=== PATIENT | male | born 1970 | race African-American/Black ===

== ENCOUNTER 2018-04-03 10:11 | Inpatient (IN) | payer OTHER ==
[2018-04-03 10:48] VITALS: BMI 25.8
--- NOTE | 2018-04-03 12:03 | HP ---
"CIWA Score Nausea/Vomitin Muscle Tremors: 4-Moderate,w/Arms Extend Anxiety: 0-No Anxiety, at Ease Agitation: 0-Normal Activity Paroxysmal Sweats: No Perspiration Orientation: 0-Oriented Tacttile Disturbances: 0-None Auditory Disturbances: 0-None Visual Disturbances: 0-None Headache: 0-None Present CIWA-Ar Total Score: 7 - Admission Criteria OASAS Guidelines: Admission for Medically Managed Detox: Requires at least one of the followin. CIWA greater than 12 2. Seizures within the past 24 hours 3. Delirium tremens within the past 24 hours 4. Hallucinations within the past 24 hours 5. Acute intervention needed for co occurring medical disorder 6. Acute intervention needed for co occurring psychiatric disorder 7. Severe withdrawal that cannot be handled at a lower level of care (continued vomiting, continued diarrhea, abnormal vital signs) requiring intravenous medication and/or fluids 8. Patient presents the following: None of the above Admission Criteria Met: Admission criteria not met Admission [facility] Allergies/Adverse Reactions: Allergies Allergy/AdvReac Type Severity Reaction Status Date / Time egg [Egg] Allergy Severe Rash Verified 04/03/18 10:58 penicillin G Allergy Severe Difficulty Verified 04/03/18 10:58 Breathing History of Present Illness: This report was requested by: Cheyenne Camacho | Reference #: [id number] There are no results for the search terms that you entered. patient here requesting detox from etoh use reports 1 pint and 2 beers daily , reports use since March 04 2018 , prior no alcohol use , reports he was partying and started drinking, latest use 3 am today , reports he starts drinking around 10 am , reports no symptoms if not drinking, denies blackouts , seizures , reports tremors . States was told by parole to come to the program , prior incarceration x 5 years for robbery , released February 252018 . cocaine : 90 $ /day since Feb 2018 denies IVDU cannabis : 2 x/week recent use after Feb 2018 crystal meth since age 29 denies IVDU tobacco : 1 ppd since Feb 2018 PMHX : asthma since childhood ( [place] / [place] ) , HIV ( dx 2006 , RF=ST ) no clinic no meds , PSHX : denies PSYch : denies . Denies current SI / HI . meds : denies SHX : lives in sober housing , unemployed , finances habit through money from friends . Exam Limitations: Clinical Condition - Ebola screening Have you traveled outside of the country in the last 21 days: No Have you had contact with anyone from an Ebola affected area: No Have you been sick,other than usual withdrawal symptoms: No Do you have a fever: No - Review of Systems Constitutional: See HPI EENT: reports: No Symptoms Reported, See HPI Respiratory: reports: No Symptoms reported Cardiac: reports: No Symptoms Reported GI: reports: Nausea : reports: No Symptoms Reported Musculoskeletal: reports: No Symptoms Reported Integumentary: reports: No Symptoms Reported Neuro: reports: Tremors Endocrine: reports: No Symptoms Reported Psychiatric: reports: Orientated x3, Anxious Patient History - Patient Medical History Hx Anemia: No Hx Asthma: Yes Hx Chronic Obstructive Pulmonary Disease (COPD): No Hx Cancer: No Hx Cardiac Disorders: No Hx Congestive Heart Failure: No Hx Hypertension: No Hx Hypercholesterolemia: No Hx Pacemaker: No HX Cerebrovascular Accident: No Hx Seizures: No Hx Dementia: No Hx Diabetes: No Hx Gastrointestinal Disorders: No Hx Liver Disease: No Hx Genitourinary Disorders: No Hx Sexually Transmitted Disorders: Yes (gonorrhea) Hx Renal Disease (ESRD): No Hx Thyroid Disease: No Hx Human Immunodeficiency Virus (HIV): Yes (since 2005) Hx Hepatitis C: No Hx Depression: No Hx Suicide Attempt: No Hx Schizophrenia: No - Patient Surgical History Past Surgical History: No Hx Neurologic Surgery: No Hx Cataract Extraction: No Hx Cardiac Surgery: No Hx Lung Surgery: No Hx Breast Surgery: No Hx Breast Biopsy: No Hx Abdominal Surgery: No Hx Appendectomy: No Hx Cholecystectomy: No Hx Genitourinary Surgery: No Hx Section: No Hx Orthopedic Surgery: No Anesthesia Reaction: No - PPD History Previous Implant?: Yes Documented Results: Negative w/proof Implanted On Prior R Admission?: Yes Date: 07/16/12 Results: 0 mm - Smoking Cessation Smoking history: Current every day smoker Have you smoked in the past 12 months: Yes Aproximately how many cigarettes per day: 20 Hx Chewing Tobacco Use: No Initiated information on smoking cessation: No - Substances Abused Crack Route: Smoking Frequency: Daily Amount used: $90 Age of first use: 35 Date of Last Use: 04/03/18 Alcohol-vodka Route: Oral Frequency: Daily Amount used: 1 pt. Age of first use: 14 Date of Last Use: 04/03/18 Crystal meth Route: Smoking Frequency: 1-2 times per week Amount used: $60 Age of first use: 29 Date of Last Use: 04/03/18 Marijuana Route: Smoking Frequency: 3-6 times per week Amount used: $10 Age of first use: 27 Date of Last Use: 04/02/18 Family Disease History - Family Disease History Family History: Denies Admission [facility] Vital Signs: Vital Signs - 24 hr 04/03/18 10:44 Pulse Rate 89 Respiratory 20 Rate Blood Pressure 130/81 - Physical General Appearance: Yes: Mild Distress, Anxious HEENTM: Yes: EOMI, Hearing grossly Normal, Normocephalic, Normal Voice Respiratory: Yes: Chest Non-Tender, Lungs Clear, Normal Breath Sounds Neck: Yes: No masses,lesions,Nodules, Trachea in good position Cardiology: Yes: Regular Rhythm, Regular Rate, S1, S2 Abdominal: Yes: Normal Bowel Sounds, Non Tender, Soft Genitourinary: Yes: Within Normal Limits Back: Yes: Normal Inspection Musculoskeletal: Yes: full range of Motion, Gait Steady Extremities: Yes: Normal Capillary Refill, Normal Inspection, Normal Range of Motion, Tremors Neurological: Yes: Motor Strength 5/5, Normal Mood/Affect Integumentary: Yes: Normal Color, Other (tattoos face , neck UE) - Diagnostic (1) Nicotine dependence Current Visit: Yes Status: Acute Qualifiers: Nicotine product type: cigarettes (2) Cannabis use disorder, mild, abuse Current Visit: Yes Status: Acute (3) 2,8-qskapogom-5-methylamphetamine (DOM) use disorder, moderate Current Visit: Yes Status: Chronic (4) Alcohol dependence Current Visit: Yes Status: Acute (5) Cocaine dependence Current Visit: Yes Status: Active S Breath Alcohol Content Breath Alcohol Content: 0.001 Urine Drug Screen - Results Drug Screen Negative: No Urine Drug Screen Results: THC-Marijuana, LOVE-Cocaine, MET-Methamphetamine Inpatient Rehab Admission - Rehab Decision to Admit Inpatient rehab admission?: No"
[2018-04-03] MEDS ORDERED: IBUPROFEN 400 MG TABLET (FP) PO PRN (12:46)
[2018-04-03] MEDS ORDERED: NICOTINE POLACRILEX 2 MG GUM BUC PRN (12:46)
[2018-04-03] MEDS ORDERED: diazePAM 5 MG TABLET PO PRN (12:46)
[2018-04-03] MEDS ORDERED: MENTHOL/PHENOL 1 EACH UD MM PRN (12:46)
[2018-04-03] MEDS ORDERED: MAGNESIUM HYDROX 2400MG/30ML ORAL SUSPENSION 30 ML CUP PO PRN (12:46)
[2018-04-03] MEDS ORDERED: MAG HYDROX/AL HYDROX/SIMETH 30 ML UNIT-DOSE CUP PO PRN (12:46)
[2018-04-03] MEDS ORDERED: MAGNESIUM CITRATE 300 ML BOTTLE PO PRN (12:46)
[2018-04-03] MEDS ORDERED: ACETAMINOPHEN 325 MG TABLET (FP) PO PRN (12:46)
[2018-04-03] MEDS ORDERED: ALBUTEROL SO4 0.083% IH SOL 2.5 MG/3 ML VIAL.NEB. NEB PRN (12:48)
[2018-04-03] MEDS: diazePAM 5 MG TABLET PO SCH ×2 (14:30→22:20)
[2018-04-03] MEDS ORDERED: MELATONIN 5 MG TABLETS PO PRN (22:00)
[2018-04-03] MEDS: THIAMINE HCL 100 MG TABLET (FP) PO SCH (22:20)
[2018-04-04] MEDS: diazePAM 5 MG TABLET PO SCH ×3 (05:34→22:26)
[2018-04-04] MEDS: PRENATAL VITAMINS W/ FOLIC ACID TABLET (FP) PO SCH (10:40)
[2018-04-04 11:23] LABS: ALBUMIN 3.9 g/dl (3.4-5.0); ALK PHOS 107 U/L (45-117); ANION GAP 6 MMOL/L (8-16); BILIRUBIN,TOTAL 0.4 mg/dL (0.2-1); BLOOD UREA NITROGEN 15 mg/dL (7-18); CALCIUM 9.3 mg/dL (8.5-10.1); CHLORIDE 104 mmol/L (98-107); CO2 28 mmol/L (21-32); CREATININE 1.3 mg/dL (0.55-1.3); GLUCOSE,RANDOM 103 mg/dL (74-106); POTASSIUM 4.1 mmol/L (3.5-5.1); SGOT/AST 30 U/L (15-37); SGPT/ALT 35 U/L (13-61); SODIUM 138 mmol/L (136-145); TOT PROT 7.3 g/dl (6.4-8.2)
[2018-04-04 11:38] LABS: HEMATOCRIT 40.1 % (35.4-49); HEMOGLOBIN 13.9 GM/dL (11.7-16.9); MCH 33.6 pg (25.7-33.7); MCHC 34.8 g/dl (32.0-35.9); MEAN CELL VOLUME 96.5 fl (80-96); MEAN PLT VOLUME 10.7 fl (7.5-11.1); PLATELET COUNT 171 K/MM3 (134-434); RBC 4.15 M/mm3 (4.00-5.60); RDW 14.2 % (11.9-15.9); WHITE BLOOD COUNT 9.2 K/mm3 (4.0-10.0)
--- NOTE | 2018-04-04 15:22 | PN ---
S CIWA - CIWA Score Nausea/Vomitin Muscle Tremors: 4-Moderate,w/Arms Extend Anxiety: 2 Agitation: 0-Normal Activity Paroxysmal Sweats: No Perspiration Orientation: 0-Oriented Tacttile Disturbances: 2-Mild Itch/Numbness/Burn Auditory Disturbances: 0-None Visual Disturbances: 3-Moderate Sensitivity Headache: 0-None Present CIWA-Ar Total Score: 14 BHS Progress Note (SOAP) Subjective: Tremors, Body Aches, Nausea. Objective: PATIENT A & O X 3, OBSERVED AMBULATING ON UNIT. IN NO ACUTE DISTRESS. 04/04/18 15:21 Vital Signs Temperature 98.4 F 04/04/18 14:44 Pulse Rate 81 04/04/18 14:44 Respiratory Rate 18 04/04/18 14:44 Blood Pressure 138/79 04/04/18 14:44 O2 Sat by Pulse Oximetry (%) Laboratory Tests 04/04/18 04/04/18 04/04/18 06:00 06:00 06:00 WBC 9.2 RBC 4.15 Hgb 13.9 Hct 40.1 MCV 96.5 H MCH 33.6 D MCHC 34.8 RDW 14.2 Plt Count 171 D MPV 10.7 D Sodium 138 Potassium 4.1 Chloride 104 Carbon Dioxide 28 Anion Gap 6 L BUN 15 Creatinine 1.3 Creat Clearance w eGFR 59.70 Random Glucose 103 Calcium 9.3 Total Bilirubin 0.4 AST 30 ALT 35 Alkaline Phosphatase 107 Total Protein 7.3 Albumin 3.9 RPR Titer Nonreactive LABS NOTED. Assessment: 04/04/18 15:21 WITHDRAWAL SYMPTOMS. Plan: CONTINUE DETOX.
[2018-04-04] MEDS: THIAMINE HCL 100 MG TABLET (FP) PO SCH (22:26)
[2018-04-05] MEDS ORDERED: diazePAM 5 MG TABLET PO SCH (10:00)
[2018-04-05] MEDS: PRENATAL VITAMINS W/ FOLIC ACID TABLET (FP) PO SCH (10:08)
--- NOTE | 2018-04-05 12:05 | PN ---
S CIWA - CIWA Score Nausea/Vomitin-Mild Nausea/No Vomiting Muscle Tremors: 3 Anxiety: 3 Agitation: 2 Paroxysmal Sweats: 1-Minimal Palms Moist Orientation: 0-Oriented Tacttile Disturbances: 0-None Auditory Disturbances: 0-None Visual Disturbances: 0-None Headache: 2-Mild CIWA-Ar Total Score: 12 BHS Progress Note (SOAP) Subjective: tremor sweating restlessness anxiety Objective: 04/05/18 12:06 Vital Signs Temperature 98.2 F 04/05/18 09:37 Pulse Rate 69 04/05/18 09:37 Respiratory Rate 20 04/05/18 09:37 Blood Pressure 123/84 04/05/18 09:37 O2 Sat by Pulse Oximetry (%) Laboratory Last Values WBC 9.2 K/mm3 (4.0-10.0) 04/04/18 06:00 RBC 4.15 M/mm3 (4.00-5.60) 04/04/18 06:00 Hgb 13.9 GM/dL (11.7-16.9) 04/04/18 06:00 Hct 40.1 % (35.4-49) 04/04/18 06:00 MCV 96.5 fl (80-96) H 04/04/18 06:00 MCH 33.6 pg (25.7-33.7) D 04/04/18 06:00 MCHC 34.8 g/dl (32.0-35.9) 04/04/18 06:00 RDW 14.2 % (11.9-15.9) 04/04/18 06:00 Plt Count 171 K/MM3 (134-434) D 04/04/18 06:00 MPV 10.7 fl (7.5-11.1) D 04/04/18 06:00 Sodium 138 mmol/L (136-145) 04/04/18 06:00 Potassium 4.1 mmol/L (3.5-5.1) 04/04/18 06:00 Chloride 104 mmol/L (98-107) 04/04/18 06:00 Carbon Dioxide 28 mmol/L (21-32) 04/04/18 06:00 Anion Gap 6 MMOL/L (8-16) L 04/04/18 06:00 BUN 15 mg/dL (7-18) 04/04/18 06:00 Creatinine 1.3 mg/dL (0.55-1.3) 04/04/18 06:00 Creat Clearance w eGFR 59.70 (>60) 04/04/18 06:00 Random Glucose 103 mg/dL (74-106) 04/04/18 06:00 Calcium 9.3 mg/dL (8.5-10.1) 04/04/18 06:00 Total Bilirubin 0.4 mg/dL (0.2-1) 04/04/18 06:00 AST 30 U/L (15-37) 04/04/18 06:00 ALT 35 U/L (13-61) 04/04/18 06:00 Alkaline Phosphatase 107 U/L (45-117) 04/04/18 06:00 Total Protein 7.3 g/dl (6.4-8.2) 04/04/18 06:00 Albumin 3.9 g/dl (3.4-5.0) 04/04/18 06:00 RPR Titer Nonreactive (NONREACTIVE) 04/04/18 06:00 lab noted Assessment: 04/05/18 12:06 withdrawal sx Plan: continue detox
[2018-04-05 17:33] VITALS: BP 139/77; PULSE 88; TEMP 97.7
--- NOTE | 2018-04-05 18:56 | PN ---
[facility] Progress Note Note: informed by nurse ,stated patient would like to leave alert,no complaint stated he could not complete treatment due to personal issue the risk of relapsing is high all attempts to convince patient to stay with no avail seen by counselors and nurse patient signed release ama,advise to go to nearest emergency room if any emergency problem, patient will follow up with his medical provider at [facility] Vital Signs Temperature 97.7 F 04/05/18 17:32 Pulse Rate 88 04/05/18 17:32 Respiratory Rate 16 04/05/18 17:32 Blood Pressure 139/77 04/05/18 17:32 O2 Sat by Pulse Oximetry (%) patient left the unit in good and stable condition, has albuterol inhaler with him
--- NOTE | 2018-04-05 18:59 | DS ---
[facility] Detox Discharge Summary Admission Date: 04/03/18 Discharge Date: 04/05/18 - History Present History: Alcohol Dependence, Cannabis Dependence, Cocaine Dependence Additional Comments: patient signed release ama Pertinent Past History: asthma - Physical Exam Results Vital Signs: Vital Signs Temperature 97.7 F 04/05/18 17:32 Pulse Rate 88 04/05/18 17:32 Respiratory Rate 16 04/05/18 17:32 Blood Pressure 139/77 04/05/18 17:32 O2 Sat by Pulse Oximetry (%) Pertinent Admission Physical Exam Findings: withdrawal signs and symptom Laboratory Last Values WBC 9.2 K/mm3 (4.0-10.0) 04/04/18 06:00 RBC 4.15 M/mm3 (4.00-5.60) 04/04/18 06:00 Hgb 13.9 GM/dL (11.7-16.9) 04/04/18 06:00 Hct 40.1 % (35.4-49) 04/04/18 06:00 MCV 96.5 fl (80-96) H 04/04/18 06:00 MCH 33.6 pg (25.7-33.7) D 04/04/18 06:00 MCHC 34.8 g/dl (32.0-35.9) 04/04/18 06:00 RDW 14.2 % (11.9-15.9) 04/04/18 06:00 Plt Count 171 K/MM3 (134-434) D 04/04/18 06:00 MPV 10.7 fl (7.5-11.1) D 04/04/18 06:00 Sodium 138 mmol/L (136-145) 04/04/18 06:00 Potassium 4.1 mmol/L (3.5-5.1) 04/04/18 06:00 Chloride 104 mmol/L (98-107) 04/04/18 06:00 Carbon Dioxide 28 mmol/L (21-32) 04/04/18 06:00 Anion Gap 6 MMOL/L (8-16) L 04/04/18 06:00 BUN 15 mg/dL (7-18) 04/04/18 06:00 Creatinine 1.3 mg/dL (0.55-1.3) 04/04/18 06:00 Creat Clearance w eGFR 59.70 (>60) 04/04/18 06:00 Random Glucose 103 mg/dL (74-106) 04/04/18 06:00 Calcium 9.3 mg/dL (8.5-10.1) 04/04/18 06:00 Total Bilirubin 0.4 mg/dL (0.2-1) 04/04/18 06:00 AST 30 U/L (15-37) 04/04/18 06:00 ALT 35 U/L (13-61) 04/04/18 06:00 Alkaline Phosphatase 107 U/L (45-117) 04/04/18 06:00 Total Protein 7.3 g/dl (6.4-8.2) 04/04/18 06:00 Albumin 3.9 g/dl (3.4-5.0) 04/04/18 06:00 RPR Titer Nonreactive (NONREACTIVE) 04/04/18 06:00 - Medication Discharge Medications: Ambulatory Orders Albuterol Sulfate Inhaler - [Ventolin Hfa *Inhaler*] 2 inh IH Q4H PRN 07/14/12 - AMA Did Patient Leave Against Medical Advice: Yes
== END 2018-04-05 18:57 | disposition left against medical advice (07) | DRG 770 ==
LOC: YASAS 10:11 → Y3N 12:57
PROVIDERS: ADMIT Surgery; ATTEND Surgery
PROC: HZ2ZZZZ Detoxification Services for Substance Abuse Treatment (ICD-10-PCS; principal; 2018-04-03)
DX: F10.230 Alcohol dependence with withdrawal, uncomplicated (principal); F14.20 Cocaine dependence, uncomplicated; F15.90 Other stimulant use, unspecified, uncomplicated; F12.90 Cannabis use, unspecified, uncomplicated; F17.210 Nicotine dependence, cigarettes, uncomplicated; B20 Human immunodeficiency virus [HIV] disease; J45.909 Unspecified asthma, uncomplicated; Z87.438 Personal history of other diseases of male genital organs; Z88.0 Allergy status to penicillin; Z91.012 Allergy to eggs
CPT/HCPCS: 36415; 80053; 85027; 86593

== ENCOUNTER 2018-11-18 19:56 | Inpatient (IN) | payer OTHER ==
[2018-11-19 00:02] VITALS: BMI 24.8
--- NOTE | 2018-11-19 03:43 | PN ---
S CIWA - CIWA Score Nausea/Vomitin-No Nausea/No Vomiting Muscle Tremors: 2 Anxiety: 4-Mod. Anxious/Guarded Agitation: 3 Paroxysmal Sweats: 2 Orientation: 0-Oriented Tacttile Disturbances: 0-None Auditory Disturbances: 0-None Visual Disturbances: 0-None Headache: 4-Moderately Severe CIWA-Ar Total Score: 15 S Progress Note (SOAP) Subjective: Alcohol withdrawal with crack use HIV+ on Bactrim only Anxiety depression = Objective: alert and orient Tremors, anxiety, shakes, nausea, insomnia Vital Signs Temperature 97.3 F L 11/19/18 02:01 Pulse Rate 74 11/19/18 02:01 Respiratory Rate 16 11/19/18 02:01 Blood Pressure 124/75 11/19/18 02:01 O2 Sat by Pulse Oximetry (%) Assessment: Alcohol withdrawal History of HIV + Plan: Admit for detox. Librium regimen see admission orders H and P to be done in the morning
[2018-11-19] MEDS ORDERED: MELATONIN 5 MG TABLETS PO PRN (03:51)
[2018-11-19] MEDS ORDERED: hydrOXYzine PAMOATE 25 MG CAPSULE (FP) PO PRN (03:51)
[2018-11-19] MEDS ORDERED: ACETAMINOPHEN 325 MG TABLET (FP) PO PRN ×2 (03:51)
[2018-11-19] MEDS ORDERED: MAGNESIUM HYDROX 2400MG/30ML ORAL SUSPENSION 30 ML CUP PO PRN (03:51)
[2018-11-19] MEDS ORDERED: NICOTINE POLACRILEX 2 MG GUM BUC PRN (03:51)
[2018-11-19] MEDS ORDERED: chlordiazePOXIDE HCL 25 MG CAPSULE PO PRN (03:51)
[2018-11-19] MEDS ORDERED: BISMUTH SUBSALICYLATE 524 MG/30 ML UD PO PRN (03:51)
[2018-11-19] MEDS ORDERED: IBUPROFEN 400 MG TABLET (FP) PO PRN (03:51)
[2018-11-19] MEDS ORDERED: MENTHOL/PHENOL 1 EACH UD MM PRN (03:51)
[2018-11-19] MEDS ORDERED: MAGNESIUM CITRATE 300 ML BOTTLE PO PRN (03:51)
[2018-11-19] MEDS ORDERED: METHOCARBAMOL 500 MG TABLET PO PRN (03:51)
[2018-11-19] MEDS ORDERED: MAG HYDROX/AL HYDROX/SIMETH 30 ML UNIT-DOSE CUP PO PRN (03:51)
[2018-11-19] MEDS ORDERED: ALBUTEROL SO4 8 GM HFA INHALER IH PRN (03:53)
[2018-11-19] MEDS: chlordiazePOXIDE HCL 25 MG CAPSULE PO SCH ×3 (05:04→17:48)
[2018-11-19 09:49] VITALS: PULSE 78; TEMP 98.5
[2018-11-19] MEDS ORDERED: NICOTINE 14 MG/24 HOURS TOPICAL PATCH TD SCH (10:00)
[2018-11-19] MEDS ORDERED: PRENATAL VITAMINS W/ FOLIC ACID TABLET (FP) PO SCH (10:00)
[2018-11-19 13:19] VITALS: BP 126/74
[2018-11-19] MEDS ORDERED: guaiFENesin 200 MG/10 ML 10 ML UNIT-DOSE CUPS PO PRN (13:55)
--- NOTE | 2018-11-19 13:55 | PN ---
[facility] CIWA - CIWA Score Nausea/Vomitin-No Nausea/No Vomiting Muscle Tremors: None Anxiety: 4-Mod. Anxious/Guarded Agitation: 3 Paroxysmal Sweats: 3 Orientation: 0-Oriented Tacttile Disturbances: 0-None Auditory Disturbances: 0-None Visual Disturbances: 2-Mild Sensitivity Headache: 2-Mild CIWA-Ar Total Score: 14
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
[2018-11-19] MEDS ORDERED: SULFAMETHOXAZOLE/TRIMETHOPRIM 800MG/160MG D.S. TABLET PO SCH (14:30)
--- NOTE | 2018-11-19 14:32 | EKG ---
Test Reason : Blood Pressure : / mmHG Vent. Rate : 086 BPM Atrial Rate : 086 BPM P-R Int : 190 ms QRS Dur : 090 ms QT Int : 378 ms P-R-T Axes : 079 114 076 degrees QTc Int : 452 ms NORMAL SINUS RHYTHM RIGHT AXIS DEVIATION ABNORMAL ECG WHEN COMPARED WITH ECG OF 19-NOV-2018 04:01, NO SIGNIFICANT CHANGE WAS FOUND Confirmed by GLENN LEE MD ([id number]) on 11/19/2018 2:32:10 PM Referred By: Marielena Chester Confirmed By:GLENN LEE MD
--- NOTE | 2018-11-19 14:36 | EKG ---
Test Reason : Blood Pressure : / mmHG Vent. Rate : 066 BPM Atrial Rate : 066 BPM P-R Int : 212 ms QRS Dur : 104 ms QT Int : 408 ms P-R-T Axes : 061 116 073 degrees QTc Int : 427 ms SINUS RHYTHM WITH 1ST DEGREE A-V BLOCK RIGHT AXIS DEVIATION ABNORMAL ECG NO PREVIOUS ECGS AVAILABLE Confirmed by GLENN LEE MD ([id number]) on 11/19/2018 2:35:45 PM Referred By: Marielena Chester Confirmed By:GLENN LEE MD
--- NOTE | 2018-11-19 21:19 | PN ---
[facility] Progress Note Note: Core Drier was informed by staff after the patient left, left AMA, did not want to speak with anyone.
--- NOTE | 2018-11-19 21:46 | DS ---
[facility] Detox Discharge Summary Admission Date: 11/19/18 Discharge Date: 11/19/18 - History Present History: Alcohol Dependence Additional Comments: Patient left the unit AMA and did not wait to see provider - Physical Exam Results Vital Signs: Vital Signs Temperature 98.5 F 11/19/18 13:19 Pulse Rate 78 11/19/18 13:19 Respiratory Rate 18 11/19/18 13:19 Blood Pressure 126/74 11/19/18 13:19 O2 Sat by Pulse Oximetry (%) Pertinent Admission Physical Exam Findings: Vital Signs Temperature 98.5 F 11/19/18 13:19 Pulse Rate 78 11/19/18 13:19 Respiratory Rate 18 11/19/18 13:19 Blood Pressure 126/74 11/19/18 13:19 O2 Sat by Pulse Oximetry (%) - Medication Discharge Medications: Ambulatory Orders Albuterol Sulfate Inhaler - [Ventolin Hfa *Inhaler*] 2 inh IH Q4H PRN 07/14/12 Sulfamethoxazole/Trimethoprim [Bactrim Ds -] 1 tab PO DAILY 11/19/18 - Diagnosis (1) Alcohol dependence with withdrawal, uncomplicated Current Visit: Yes Status: Acute (2) Nicotine dependence Current Visit: Yes Status: Acute Qualifiers: Nicotine product type: cigarettes Substance use status: uncomplicated Qualified Code(s): F17.210 - Nicotine dependence, cigarettes, uncomplicated (3) Acquired immune deficiency syndrome (AIDS) Current Visit: Yes Status: Chronic (4) Anxiety Current Visit: Yes Status: Chronic (5) Weight decreased Current Visit: Yes Status: Chronic (6) Cannabis use disorder, mild, abuse Current Visit: No Status: Acute (7) 2,8-pjsyvfufc-0-methylamphetamine (DOM) use disorder, moderate Current Visit: No Status: Chronic - AMA Did Patient Leave Against Medical Advice: Yes
[2018-11-19] MEDS ORDERED: BACITRACIN 15 GM TUBE TOPICAL OINTMENT TP SCH (22:00)
[2018-11-19] MEDS ORDERED: THIAMINE HCL 100 MG TABLET (FP) PO SCH (22:00)
[2018-11-19] MEDS ORDERED: TOLNAFTATE 1% CREAM 15 GM TUBE TP SCH (22:00)
[2018-11-20] MEDS ORDERED: chlordiazePOXIDE HCL 25 MG CAPSULE PO SCH (05:00)
[2018-11-21] MEDS ORDERED: chlordiazePOXIDE HCL 10 MG CAPSULE PO PRN
[2018-11-21] MEDS ORDERED: chlordiazePOXIDE HCL 10 MG CAPSULE PO SCH (05:00)
[2018-11-22] MEDS ORDERED: chlordiazePOXIDE HCL 10 MG CAPSULE PO SCH (05:00)
[2018-11-23] MEDS ORDERED: chlordiazePOXIDE HCL 10 MG CAPSULE PO ONE (05:00)
== END 2018-11-19 19:50 | disposition left against medical advice (07) | DRG 770 ==
LOC: YASAS 19:56 → Y3N 11-19 03:43
PROVIDERS: ADMIT Surgery; ATTEND Surgery
PROC: HZ2ZZZZ Detoxification Services for Substance Abuse Treatment (ICD-10-PCS; principal; 2018-11-19)
DX: F10.230 Alcohol dependence with withdrawal, uncomplicated (principal); F14.20 Cocaine dependence, uncomplicated; F15.10 Other stimulant abuse, uncomplicated; F12.10 Cannabis abuse, uncomplicated; F17.210 Nicotine dependence, cigarettes, uncomplicated; F41.9 Anxiety disorder, unspecified; B20 Human immunodeficiency virus [HIV] disease; R63.4 Abnormal weight loss; R01.1 Cardiac murmur, unspecified; J45.909 Unspecified asthma, uncomplicated; Z87.438 Personal history of other diseases of male genital organs; Z88.0 Allergy status to penicillin; Z91.012 Allergy to eggs
CPT/HCPCS: 93005; 93010